=== PATIENT | female | born 1980 | race Two or more races ===

== ENCOUNTER 2021-06-27 22:54 | Emergency (ER) | payer OTHER ==
[2021-06-28 00:07] LABS: BASOPHIL 0.3 % (0-2); EOSINOPHIL 0 % (0-5); HCT 45.9 % (37.0-47.0); HGB 14.9 g/dl (12.5-16.0); LYMPHOCYTE 39.5 % (15-48); MCH 29.3 pg (25.0-31.0); MCHC 32.5 g/dL (32.0-36.0); MCV 90.4 fL (78.0-100.0); MONOCYTE 3.3 % (0-12); MPV 12.5 fL (6.0-9.5); NRBC 0; PLT 134 K/uL (150-400); RBC 5.08 M/uL (4.20-5.40); WBC 3.9 K/uL (4.0-10.5)
[2021-06-28 00:10] LABS: NEUTROPHIL 56.6 % (41-80)
[2021-06-28 00:48] LABS: LACTIC ACID 0.9 mmol/L (0.4-1.9)
[2021-06-28 00:52] LABS: PRO-BNP 5 pg/mL (<125)
[2021-06-28 01:16] LABS: CREATININE 0.7 mg/dL (0.51-0.95); POTASSIUM 3.8 mmol/L (3.5-5.1)
[2021-06-28 01:17] LABS: ALBUMIN 3.2 g/dL (3.4-5.0); BILIRUBIN - TOTAL 0.3 mg/dL (0.2-1.0); C-REACTIVE PROTEIN 3.7 mg/dL (<=0.90); GLOBULIN (CALCULATION) 4.9 g/dL; TOTAL PROTEIN 8.1 g/dL (6.4-8.2)
[2021-06-28 03:14] LABS: BILIRUBIN NEGATIVE (NEGATIVE); BLOOD TRACE-INTACT Ery/uL (NEGATIVE); CLARITY CLEAR (CLEAR); COLOR YELLOW (YELLOW); GLUCOSE (U) NORMAL (NORMAL); LEUKOCYTES NEGATIVE Leu/uL (NEGATIVE); NITRITE NEGATIVE (NEGATIVE); PROTEIN TRACE (LOW) mg/dL (NEGATIVE); SPECIFIC GRAVITY <=1.005 (1.001-1.030); UROBILINOGEN 0.2 mg/dL (0.2-1.0)
[2021-06-28 03:22] LABS: BACTERIA TRACE; URINARY WBC RARE
[2021-06-28] MEDS ORDERED: VENTOLIN HFA IN18 GM INH (04:20)
[2021-06-28] MEDS ORDERED: AZITHROMYCIN250 MG PO (04:20)
[2021-06-28] MEDS ORDERED: DEXAMETHASONE 2M2 MG PO (04:20)
[2021-06-28] MEDS ORDERED: ONDANSETRON ODT4 MG SL (04:21)
== END 2021-06-28 04:54 | disposition home or self-care (01) ==
LOC: FER 22:54
PROVIDERS: Emergency Medicine Emergency Medical Services
DX: U07.1 COVID-19 (principal); J12.82 Pneumonia due to coronavirus disease 2019; R00.0 Tachycardia, unspecified; I10 Essential (primary) hypertension; Z79.3 Long term (current) use of hormonal contraceptives
CPT/HCPCS: 36415; 36600; 71045; 71275; 80053; 81001; 82803; 83605; 83880; 84145; 84484; 85025; 85379; 86140; 87040; 87088; 93005; 94640; 94664; J1100; J1885; J2405; J7030; Q9967; U0002

== ENCOUNTER 2021-07-02 17:26 | Inpatient (IN) | payer OTHER ==
[~2021-07-02] VITALS: Ht 157.5 cm; Wt 76.5 kg
[~2021-07-02 17:26] MED LIST: AZITHROMYCIN250 MG PO; DEXAMETHASONE 2M2 MG PO; ONDANSETRON ODT4 MG SL; VENTOLIN HFA IN18 GM INH
[2021-07-02 19:07] LABS: BASOPHIL 0.6 % (0-2); EOSINOPHIL 0.4 % (0-5); HCT 48.8 % (37.0-47.0); HGB 15.8 g/dl (12.5-16.0); LYMPHOCYTE 28.8 % (15-48); MCH 28.9 pg (25.0-31.0); MCHC 32.4 g/dL (32.0-36.0); MCV 89.2 fL (78.0-100.0); MONOCYTE 5.9 % (0-12); MPV 11.4 fL (6.0-9.5); NRBC 0; PLT 262 K/uL (150-400); RBC 5.47 M/uL (4.20-5.40); RDW 12.7 % (11.5-14.0); WBC 7.8 K/uL (4.0-10.5)
[2021-07-02 19:10] LABS: NEUTROPHIL 61.9 % (41-80)
[2021-07-02 19:26] LABS: BILIRUBIN NEGATIVE (NEGATIVE); BLOOD TRACE-INTACT Ery/uL (NEGATIVE); CLARITY CLEAR (CLEAR); COLOR YELLOW (YELLOW); GLUCOSE (U) NORMAL (NORMAL); LEUKOCYTES NEGATIVE Leu/uL (NEGATIVE); NITRITE NEGATIVE (NEGATIVE); PROTEIN NEGATIVE (NEGATIVE); UROBILINOGEN 0.2 mg/dL (0.2-1.0); pH 6.5 (5.0-9.0)
[2021-07-02 19:36] LABS: BACTERIA 3+; URINARY WBC RARE
[2021-07-02 19:41] LABS: BILIRUBIN - TOTAL 0.4 mg/dL (0.2-1.0); BUN/CREAT RATIO (CALC) 35.9 RATIO; C-REACTIVE PROTEIN 1.4 mg/dL (<=0.90); CREATININE 0.64 mg/dL (0.51-0.95); GLOBULIN (CALCULATION) 5.2 g/dL; MAGNESIUM 2.4 mg/dL (1.8-2.4); POTASSIUM 3.7 mmol/L (3.5-5.1); TOTAL PROTEIN 8.2 g/dL (6.4-8.2)
[2021-07-02 19:55] LABS: LACTIC ACID 1.5 mmol/L (0.4-1.9)
[2021-07-03 09:11] LABS: BASOPHIL 0.5 % (0-2); EOSINOPHIL 0.1 % (0-5); HCT 42.9 % (37.0-47.0); HGB 13.8 g/dl (12.5-16.0); LYMPHOCYTE 27.5 % (15-48); MCH 29.1 pg (25.0-31.0); MCHC 32.2 g/dL (32.0-36.0); MCV 90.5 fL (78.0-100.0); MONOCYTE 6.4 % (0-12); MPV 11.3 fL (6.0-9.5); NEUTROPHIL 63.1 % (41-80); NRBC 0; PLT 253 K/uL (150-400); RBC 4.74 M/uL (4.20-5.40); RDW 12.6 % (11.5-14.0)
[2021-07-03 09:15] LABS: WBC 7.5 K/uL (4.0-10.5)
[2021-07-03 09:46] LABS: ALBUMIN 2.7 g/dL (3.4-5.0); BILIRUBIN - TOTAL 0.3 mg/dL (0.2-1.0); CREATININE 0.66 mg/dL (0.51-0.95); GLOBULIN (CALCULATION) 4.6 g/dL; POTASSIUM 4.1 mmol/L (3.5-5.1); TOTAL PROTEIN 7.3 g/dL (6.4-8.2)
[2021-07-04 07:42] LABS: BASOPHIL 0.4 % (0-2); EOSINOPHIL 0.6 % (0-5); HCT 41.7 % (37.0-47.0); HGB 13.5 g/dl (12.5-16.0); LYMPHOCYTE 44.7 % (15-48); MCHC 32.4 g/dL (32.0-36.0); MCV 89.5 fL (78.0-100.0); MONOCYTE 6.6 % (0-12); MPV 11.5 fL (6.0-9.5); NEUTROPHIL 44.2 % (41-80); NRBC 0; PLT 262 K/uL (150-400); RBC 4.66 M/uL (4.20-5.40); RDW 12.5 % (11.5-14.0); WBC 6.8 K/uL (4.0-10.5)
[2021-07-04 07:45] LABS: ALBUMIN 2.7 g/dL (3.4-5.0); ALKALINE PHOSHATASE 92 U/L (46-116); ALT 362 U/L (14-59); AST 103 U/L (15-37); BILIRUBIN - TOTAL 0.3 mg/dL (0.2-1.0); BUN 14 mg/dL (7-18); BUN/CREAT RATIO (CALC) 20.9 RATIO; C-REACTIVE PROTEIN <0.20 mg/dL (<=0.90); CHLORIDE 105 mmol/L (98-107); CO2 (BICARBONATE) 24 mmol/L (21-32); CREATININE 0.67 mg/dL (0.51-0.95); GLOBULIN (CALCULATION) 4.2 g/dL; GLUCOSE 91 mg/dL (74-106); MAGNESIUM 2.2 mg/dL (1.8-2.4); POTASSIUM 3.8 mmol/L (3.5-5.1); TOTAL PROTEIN 6.9 g/dL (6.4-8.2)
[2021-07-04] MEDS ORDERED: DEXAMETHASONE 2M2 MG PO (10:56)
[2021-07-04] MEDS ORDERED: MACROBID100 MG PO (10:59)
== END 2021-07-04 15:37 | disposition home or self-care (01) | DRG 177 ==
LOC: FER 17:26 → FMS 23:25
PROVIDERS: Emergency Medicine; Nurse Practitioner; ADMIT Internal Medicine
PROC: 8E0ZXY6 Isolation (ICD-10-PCS; principal; 2021-07-02)
PROC: XW033E5 Introduction of Remdesivir Anti-infective into Peripheral Vein, Percutaneous Approach, New Technology Group 5 (ICD-10-PCS; 2021-07-02)
PROC: XW0DXM6 Introduction of Baricitinib into Mouth and Pharynx, External Approach, New Technology Group 6 (ICD-10-PCS; 2021-07-02)
DX: U07.1 COVID-19 (principal); J12.82 Pneumonia due to coronavirus disease 2019; J96.01 Acute respiratory failure with hypoxia; N30.01 Acute cystitis with hematuria; Z87.440 Personal history of urinary (tract) infections
CPT/HCPCS: 36415; 36600; 71250; 80053; 81001; 82728; 82803; 83605; 83615; 83735; 84145; 84484; 85025; 86140; 87076; 87088; 87186; 93005; 94010; 94640; 94667; 94668; 94760; 94762; C9399; J0696; J0780; J1100; J1650; J2405; J7030; J7050; J8540; U0002